=== PATIENT | male | born 1975 | race Caucasian/White ===

== ENCOUNTER 2021-09-09 08:59 | Day surgery (SDC) | payer BC, OTHER ==
[~2021-09-09] VITALS: Ht 172.7 cm; Wt 96.6 kg
[2021-09-09 09:34] VITALS: BP 124/71; PULSE 50; TEMP 97.8
[2021-09-09 10:50] VITALS: BP 92/70; PULSE 59; TEMP 97.3
--- NOTE | 2021-09-09 10:50 | NUR ---
PATIENT ARRIVES TO ROOM 5 VIA CART. ASSIST TO CHAIR X 2. VITAL SIGNS WNL, B/P IS A LITTLE LOW SO IV FLUIDS INCREASED. PATIENT REQUESTS CRANBERRY JUICE AND VANILLA PUDDING. DOCTOR AT BEDSIDE. WILL CONTINUE TO MONITOR.
[2021-09-09 11:05] VITALS: BP 114/72; PULSE 52
--- NOTE | 2021-09-09 11:05 | NUR ---
PATIENT IS AWAKE AND ORIENTED. TOLERATED PUDDING AND JUICE. WELL. VITAL SIGNS WNL, B/P CAME UP TO 114/72. PATIENT DENIES ANY PAIN OR NAUSEA. WILL CONTINUE TO MONITOR.
[2021-09-09 11:20] VITALS: BP 117/65; PULSE 46
--- NOTE | 2021-09-09 11:20 | NUR ---
PATIENT IS READY FOR DISCHARGE. VITAL SIGNS WNL. DISCHARGE INSTRUCTIONS REVIEWED. IV REMOVED. PATIENT IS GETTING DRESSED, WILL D/C VIA WHEELCHAIR ONCE HE IS READY.
== END 2021-09-09 11:28 | disposition home or self-care (01) ==
LOC: SDCO 08:59
DX: Z12.11 Encounter for screening for malignant neoplasm of colon (principal); Z86.16 Personal history of COVID-19; G47.33 Obstructive sleep apnea (adult) (pediatric)
CPT/HCPCS: J2704; J7120